=== PATIENT | male | born 1970 | race Caucasian/White ===

== ENCOUNTER → 2021-06-13 15:18 | Outpatient (CLI) | payer OTHER, SELFPAY ==
--- NOTE | 2021-06-15 11:29 | PC.NURSE ---
notified pt of positive COVID test results at this time
== END ==
PROVIDERS: Visit Provider Nurse Practitioner
DX: U07.1 COVID-19 (principal)
CPT/HCPCS: C9803; U0003; U0005

== ENCOUNTER 2021-06-13 15:26 | Emergency (ER) | payer OTHER, SELFPAY ==
[2021-06-13 15:46] VITALS: BP 119/81; PULSE 83; RESP 18; TEMP 37.3; O2SAT 97; BMI 40.4
[2021-06-13 16:00] LABS: UTC Strep Screen (Rapid) Negative (Negative)
--- NOTE | 2021-06-13 16:24 | HMH.EDUTC ---
[facility] [place] Clinical Impression: Viral syndrome Acute bronchitis Qualifiers: Bronchitis organism: unspecified organism Qualified Code(s): J20.9 - Acute bronchitis, unspecified Disposition: Home, Self-Care Condition on Discharge: Good Instructions: DI for Acute Bronchitis, Preventing the Spread of Coronavirus Discharge Instructions Additional Instructions: Drink plenty of fluids. Take tylenol or ibuprofen for pain or fever. Take the medications as directed. Follow up with your regular doctor. GO TO THE ER FOR ANY WORSENING SYMPTOMS Quarantine until you know the results of your covid-19 test. If it is positive, the health department should call you and give you further instructions about your length of Quarantine and other things. Notify your school or workplace of your results and follow their instructions regarding return to work/school. Prescriptions: Benzonatate [Benzonatate 100mg cap] 100 mg PO TIDP PRN #30 cap PRN Reason: Cough Transmission Status: Received by [id number] methylPREDNISolone [Medrol] 4 mg PO DIRECTED 6 Days #21 packet Transmission Status: Received by [id number] Azithromycin [Z-Familia 250mg Tab*] 250 mg PO UD DOSE PK #6 tab Transmission Status: Received by [id number] Referrals: Provider,Referral, [Primary Care Provider] - Forms: Work/School Release Time of Disposition: 16:47 Medical Decision Making - Medical Records Medical records reviewed: No: I reviewed the patient's medical records. - Phil Inquiry Pt receiving controlled substance: No Vital Signs: 06/13/21 15:46 06/13/21 16:51 Temperature 99.2 F 99.2 F Temperature Source Oral Pulse Rate 83 Pulse Rate [Left] 83 Respiratory Rate 18 18 Blood Pressure 119/81 Blood Pressure [Right Arm] 119/81 Blood Pressure Mean [Right Arm] 93 02 Sat by Pulse Oximetry 97 - Lab Data Lab results reviewed: Yes: I reviewed the patient's lab results. Lab Results 06/13/21 15:50: Strep Scn Rapid Clinic Negative Orders (Tests/Meds): ORDERS Category Date Time Status Strep Screen Confirmation Routine Micro 06/13/21 15:50 [place]ceived [facility] [place] - General Stated complaint: cough,Sore throat,Runny nose Time Seen by Provider: 06/13/21 16:24 Mode of Arrival: Ambulatory Source of Information: Patient Limitations: No Limitations HEENT Symptoms (Recalled from RN notes): Yes (sore throat and sinus pressure/congestion and drainage) Resp Symptoms (Recalled from RN notes): No Skin Symptoms (Recalled from RN notes): No MS Symptoms (Recalled from RN notes): No Functional Status (Recalled from RN notes): wnl - History of Present Illness Provider Complaint: He is here with complaints of sinus congestion and feeling bad for the past 2 days. He has sinus pressure and a scratchy sore throat also. - Related Data Home Medications Medication Instructions Recorded Confirmed meloxicam 15 mg tablet 15 mg PO DAILY 03/24/18 08/18/19 metaxalone 800 mg tablet 800 mg PO TID 03/24/18 08/18/19 Previous Rx's Medication Instructions Recorded oseltamivir 75 mg capsule 75 mg PO BID 5 Days #10 cap 08/15/19 azithromycin 250 mg tablet 250 mg PO QDAY 5 Days #6 tab 08/18/19 Azithromycin [Z-Familia 250mg Tab*] 250 mg PO UD DOSE PK #6 tab 06/13/21 Benzonatate [Benzonatate 100mg 100 mg PO TIDP PRN #30 cap 06/13/21 cap] methylPREDNISolone [Medrol] 4 mg PO DIRECTED 6 Days #21 06/13/21 packet Allergies Allergy/AdvReac Type Severity Reaction Status Date / Time Penicillins [PENICILLINS] Allergy Intermediate I-RASH Verified 08/18/19 13:04 - Worker's Comp Is this a Worker's Comp case?: No H History - Hepatitis A Screen Drug use history?: No High risk sexual behaviors?: No History of sexually transmitted infection?: No Currently employed?: No Childcare worker?: No Do you have indoor plumbing?: Yes Do you have electricity?: Yes Attestation statement:: This patient
[2021-06-13 16:51] VITALS: BP 119/81; PULSE 83; RESP 18; TEMP 37.3
== END 2021-06-13 16:55 | disposition home or self-care (01) ==
PROVIDERS: Emergency Provider Nurse Practitioner Family
DX: J20.9 Acute bronchitis, unspecified (principal); B34.9 Viral infection, unspecified; I10 Essential (primary) hypertension
CPT/HCPCS: 87880; 99202; G0463

== ENCOUNTER 2021-06-20 16:12 | Emergency (ER) | payer OTHER, SELFPAY ==
[2021-06-20] VITALS (7 sets, daily range): BP systolic 124–148; BP diastolic 65–94; PULSE 71–89; RESP 15–22; TEMP 36.6–36.9; O2SAT 95–99; BMI 40.3
--- NOTE | 2021-06-20 16:38 | XR_ITS ---
PROCEDURE INFORMATION: Exam: XR Chest Exam date and time: 06/20/2021 4:38 PM Age: 50 years old Clinical indication: Patient HX: Covid positive, shortness of breath, cough; Additional info: SOA, covid + TECHNIQUE: Imaging protocol: XR of the chest. Portable AP upright exam 4:50 p.m. Views: 1 view. COMPARISON: CT ABDOMEN PELVIS WO CON 06/05/2019 10:39 PM FINDINGS: Lungs: Hypoventilation/low lung volumes. Question ovoid 2 x 0.8 cm nodule or nodular focus of infection projected over the superolateral right lung, superimposed on the posterior right 5th rib, versus benign summation shadow. Minimal hazy lower airspace opacities which could be ground-glass disease of COVID-19 pneumonia, versus artifact from atelectasis or superimposed soft tissue shadows. No definite consolidation. Pleural spaces: Unremarkable. No significant pleural effusion. No pneumothorax. Heart/Mediastinum: Cardiac silhouette appears mildly enlarged, accentuated by portable AP technique and shallow inspiration. 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 Bones/joints: There are spinal degenerative changes, with multilevel disc narrrowing and spondylosis. IMPRESSION: 1. Hypoventilation/low lung volumes. 2. Minimal hazy airspace opacities may be due to COVID-19 pneumonia, versus atelectasis. Questionable 2.0 x 0.8 cm right upper lobe nodule, versus summation shadows or focus of pneumonia. 3. No definite consolidation. 4. Note that ground-glass disease of COVID-19 pneumonia can be radiographically occult on plain x-ray, and if further imaging is warranted by the clinical findings or course recommend CT which would be more accurate.
--- NOTE | 2021-06-20 16:40 | HMH.EDGENADL ---
ED Disposition Clinical Impression: COVID-19, Shortness of breath Community acquired pneumonia Qualifiers: Laterality: unspecified laterality Qualified Code(s): J18.9 - Pneumonia, unspecified organism Disposition: Home, Self-Care Condition on Discharge: Good Additional Instructions: Take antibiotics as directed, follow-up with your primary care physician within the next 1 to 3 days for repeat evaluation. Return to ED with new, worsening, concerning symptoms. There was an area of consolidation in your lungs which could be pneumonia or a lung nodule. It is very important follow-up with your primary care physician to have repeat imaging to ensure that this has resolved after taking antibiotics. Prescriptions: Cefdinir [Omnicef 300mg Capsule] 300 mg PO BID #14 cap Transmission Status: Received by [facility] Azithromycin [Z-Familia 250mg Tab] 250 mg PO DIRECTED #6 tab Transmission Status: Received by [facility] Referrals: Provider,Referral, [Referring] - - Critical Care Critical Care Time: No Attestation: On 06/20/21, the high probability of a clinically significant, sudden or life threatening deterioration of the following system(s) required my full and direct attention, intervention and personal management. The time I documented below is in addition to time spent performing reported procedures but includes the following listed in this critical care notation. Medical Decision Making - Medical Records Medical records reviewed: Yes: I reviewed the patient's medical records. - Phil Inquiry Pt receiving controlled substance: No Vital Signs: 06/20/21 16:14 06/20/21 16:31 06/20/21 17:00 Temperature 98.4 F Temperature Source Oral Pulse Rate 74 80 Pulse Rate [Radial] 71 Respiratory Rate 22 18 16 Blood Pressure 124/76 135/94 H Blood Pressure [Right Arm] 143/74 H Blood Pressure Mean 88 105 Blood Pressure Mean [Right Arm] 97 Blood Pressure Position Blood Pressure Position [Right Arm] Sitting 02 Sat by Pulse Oximetry 99 99 95 Oxygen Delivery Method Room Air 06/20/21 17:30 06/20/21 18:00 06/20/21 18:30 Temperature Temperature Source Pulse Rate 89 85 80 Pulse Rate [Radial] Respiratory Rate 15 16 17 Blood Pressure 143/69 H 126/79 125/85 Blood Pressure [Right Arm] Blood Pressure Mean 111 95 96 Blood Pressure Mean [Right Arm] Blood Pressure Position Blood Pressure Position [Right Arm] 02 Sat by Pulse Oximetry 96 Oxygen Delivery Method 06/20/21 18:55 Temperature 98 F Temperature Source Oral Pulse Rate 78 Pulse Rate [Radial] Respiratory Rate 18 Blood Pressure 148/65 H Blood Pressure [Right Arm] Blood Pressure Mean Blood Pressure Mean [Right Arm] Blood Pressure Position Sitting Blood Pressure Position [Right Arm] 02 Sat by Pulse Oximetry Oxygen Delivery Method Room Air - Lab Data Lab Results 06/20/21 17:00: WBC 6.2, RBC 4.89, Hgb 16.0, Hct 46.3, MCV 94.5 H, MCH 32.6 H, MCHC 34.5, RDW 13.0, Plt Count 232, MPV 8.6, Neut % (Auto) 63.6, Lymph % (Auto) 26.9, Sherman % (Auto) 6.6, Eos % (Auto) 2.1, Baso % (Auto) 0.7, Neut # (Auto) 4.0, Lymph # (Auto) 1.7, Sherman # (Auto) 0.4, Eos # (Auto) 0.1, Baso # (Auto) 0.0 06/20/21 17:00: Sodium 140, Potassium 4.2, Chloride 104, Carbon Dioxide 31 H, Anion Gap 9.2, BUN 15, Creatinine 1.00, Estimated Creat Clear 191, Estimated GFR 79, Est GFR ( Amer) 95, Glucose 140 H, Calcium 8.9, Total Bilirubin 0.5, AST 32, ALT 27, Alkaline Phosphatase 83, Troponin I < 0.01, Total Protein 6.8, Albumin 4.0, Globulin 2.8, Albumin/Globulin Ratio 1.4 06/20/21 17:00: NT-Pro-B Natriuret Pep 20.1 Result diagrams: 06/20/21 17:00 06/20/21 17:00 Orders (Tests/Meds): ED MEDICATIONS Discontinued Medications Generic Name Dose Route Start Last Admin Trade Name Freq PRN Reason Stop Dose Admin Benzonatate 100 mg 06/20/21 16:45 06/20/21 18:05 Benzonatate 100mg Capsule PO 07/20/21 16:44 100
[2021-06-20 17:24] LABS: Basophils % 0.7 % (0.1-2.0); Eosinophils # 0.1 K/mm3 (0.0-0.4); Eosinophils % 2.1 % (0.1-12.0); Hematocrit 46.3 % (42.0-52.0); Lymphocytes # 1.7 K/mm3 (0.7-4.5); Lymphocytes % 26.9 % (10-50); Mean Corpuscular HGB Conc 34.5 g/dL (31.8-35.4); Mean Corpuscular Hemoglobin 32.6 pg (27.0-31.2); Mean Corpuscular Volume 94.5 fl (80-94); Mean Platelet Volume 8.6 fl (7.4-10.4); Monocytes # 0.4 K/mm3 (0.1-1.0); Monocytes % 6.6 % (1.7-9.3); Neutrophils % 63.6 % (37.0-80.0); Platelet Count 232 K/mm3 (142-424); Red Blood Count 4.89 M/mm3 (4.60-6.20); White Blood Count 6.2 K/mm3 (4.8-10.8)
[2021-06-20 17:28] LABS: Chloride 104 mmol/L (98-107); Potassium 4.2 mmoL/L (3.5-5.1); Sodium 140 mmol/L (136-145)
[2021-06-20 17:31] LABS: Alanine Aminotransferase 27 U/L (12-78); Albumin/Globulin Ratio 1.4 (1.1-1.8); Alkaline Phosphatase 83 U/L (38-126); Anion Gap 9.2 mEq/L (5-15); Aspartate Amino Transferase 32 U/L (17-59); Bilirubin,Total 0.5 mg/dl (0.2-1.3); Blood Urea Nitrogen 15 mg/dl (9-20); Carbon Dioxide 31 mmol/L (22.0-30.0); Creatinine Clearance Estimated 191 mL/min (50-200); Estimated Glomerular Filt Rate 79 ml/min (>60); GFR (African American) 95 ML/MIN (>60); Globulin 2.8 g/dL (1.3-3.2); Total Protein,Serum 6.8 g/dl (6.3-8.2)
[2021-06-20 17:32] LABS: Calcium 8.9 mg/dl (8.4-10.2); Glucose 140 mg/dl (74-100)
[2021-06-20 17:40] LABS: NT Pro Brain Natriuretic Pep. 20.1 pg/mL (0-125)
[2021-06-20 18:02] LABS: Troponin I < 0.01 ng/ml (0.00-0.034)
--- NOTE | 2021-06-20 18:20 | ECG_ITS ---
APPROVED REPORT Exam: Resting ECG HR:69 bpm ECG Measurements Heart Rate 69 AXES GA 158 P 52 QRSd 86 QRS 72 QT 384 T 55 QTc 411 Conclusion Normal sinus rhythm Normal ECG Electronically signed by : Nima Deleon MD 06/21/2021 21:51:01
== END 2021-06-20 18:57 | disposition home or self-care (01) ==
PROVIDERS: Emergency Provider Emergency Medicine; PCP Internal Medicine
DX: J18.9 Pneumonia, unspecified organism (principal); U07.1 COVID-19; I10 Essential (primary) hypertension
CPT/HCPCS: 71045; 80053; 83880; 84484; 85025; 93005; 99282

== ENCOUNTER 2022-11-21 15:51 | Emergency (ER) | payer OTHER, SELFPAY ==
[2022-11-21 16:05] VITALS: BP 136/81; PULSE 81; RESP 19; TEMP 36.8; O2SAT 98; BMI 39.6
--- NOTE | 2022-11-21 16:30 | EXP.UTC ---
Discharge Plan Disposition Patient Disposition: Home, Self-Care Condition: Good Prescriptions Prescriptions: New azithromycin [Zithromax Z-Familia] 250 mg tablet See Rx Instructions .ROUTE .COMPLEX 5 Days Qty: 6 0RF Rx Instructions: For 250 mg dose pack: take 500 mg today (day 1), then 250 mg for 4 days (days 2-5) benzonatate 100 mg capsule 100 mg PO TID PRN (Reason: cough) Qty: 30 0RF methylprednisolone [Medrol (Familia)] 4 mg tablets,dose pack See Rx Instructions .Route .COMPLEX 6 Days Qty: 21 0RF Rx Instructions: taper pack; No Action azithromycin 250 mg tablet 250 mg PO QDAY 5 Days Qty: 6 0RF Rx Instructions: ii tabs day one, i tab days 2-5 meloxicam 15 mg tablet 15 mg PO DAILY metaxalone [Skelaxin] 800 mg tablet 800 mg PO TID oseltamivir [Tamiflu] 75 mg capsule 75 mg PO BID 5 Days Qty: 10 0RF azithromycin 250 MG tablet 250 mg PO UD DOSE PK Qty: 6 0RF Rx Instructions: Take two (2) tablets today, then one (1) tablet days #2 thru #5 benzonatate 100 MG capsule 100 mg PO TIDP PRN (Reason: Cough) Qty: 30 0RF methylprednisolone 4 MG tablets,dose pack 4 mg PO DIRECTED 6 Days Qty: 21 0RF azithromycin 250 MG tablet 250 mg PO DIRECTED Qty: 6 0RF Rx Instructions: Take two (2) tablets on day #1, then one (1) tablet day #2 thru #5 cefdinir 300 MG capsule 300 mg PO BID Qty: 14 0RF Referrals Follow up/Referrals: Hayley Bustillos MD [Primary Care Provider] - See instructions Activity Restrictions/Add. Instructions Additional Instructions/Restrictions: * Start antibiotic today. Be sure to complete entire prescription even if feeling better Monitor temp. Tylenol every 4 hours as needed and / or ibuprofen every 6 hours as needed ( As long as your primary care physician has told you that it ok to take both. For fever/aches/pains ER if no less than 101 despite Tylenol or Motrin Humidifier/vaporizer or hot steamy shower Mucinex during the day for your cough and cough suppressant only at night. Be sure to drink lots of water. *Tessalon Perles will not cause drowsiness but use at bedtime to help stop cough so that you may get some rest. *Start steroid today. Helps with inflammation therefore, cough and wheezing. Follow directions on the package. Reviewed side effects. Patient reports taking them before. Follow up IMMEDIATELY for new or worsening of symptoms OR no noticeable improvement over the next 48-72 hours. 911 immediately for any life threatening symptoms such as chest pain or difficulty breathing* Clinical Impressions Clinical Impression: Acute bronchitis, Sinusitis Instructions Patient Instructions: DI for Sinusitis, Sinusitis, Acute Bronchitis Discharge ED Provider: Juani Krueger [facility] [place] HPI General Stated complaint: sore throat, sinus congestion Mode of Arrival: Ambulatory Source of Information: Patient Limitations: No Limitations Time Seen by Provider: 11/21/22 16:30 Description of Symptoms (Recalled from Triage Doc. by RN): PATIENT C/O RUNNY NOSE, SORE THROAT, AND PRODUCTIVE COUGH SINCE SUNDAY HEENT Symptoms (Recalled from RN notes): Yes Resp Symptoms (Recalled from RN notes): Yes Skin Symptoms (Recalled from RN notes): No MS Symptoms (Recalled from RN notes): No Functional Status (Recalled from RN notes): WNL History of Present Illness Provider Complaint: Patient states that he has been having sinus congestion and pressure for close to a week worse since Sunday and having cough that is productive at times and sometimes feels a little SOA after coughing episode States that he is having pressure in his sinuses and ears and drainage in his throat Related Data Home Medications Medication Instructions Recorded Confirmed meloxicam 15 mg tablet 15 mg PO DAILY Arthritis 03/24/18 08/18/19 metaxalone 800 mg tablet (Skelaxin) 800 mg PO TID BACK PAIN 03/24/18
[2022-11-21 16:54] VITALS: BP 136/81; PULSE 81; RESP 19; TEMP 36.8; O2SAT 98
== END 2022-11-21 16:56 | disposition home or self-care (01) ==
PROVIDERS: Emergency Provider Nurse Practitioner; PCP Internal Medicine
DX: J20.9 Acute bronchitis, unspecified (principal); J01.90 Acute sinusitis, unspecified
CPT/HCPCS: 99212; 99214; G0463

== ENCOUNTER 2024-04-13 10:32 | Emergency (ER) | payer OTHER, SELFPAY ==
[2024-04-13] VITALS (7 sets, daily range): BP systolic 115–126; BP diastolic 59–82; PULSE 68–83; RESP 16–20; TEMP 36.7–37.1; O2SAT 95–100; BMI 39.2
--- NOTE | 2024-04-13 10:39 | HMH.EDGENADL ---
Discharge Plan Disposition Patient Disposition: Home, Self-Care Condition: Fair Prescriptions Prescriptions: No Action azithromycin 250 mg tablet 250 mg PO QDAY 5 Days Qty: 6 0RF Rx Instructions: ii tabs day one, i tab days 2-5 meloxicam 15 mg tablet 15 mg PO DAILY metaxalone [Skelaxin] 800 mg tablet 800 mg PO TID oseltamivir [Tamiflu] 75 mg capsule 75 mg PO BID 5 Days Qty: 10 0RF azithromycin 250 MG tablet 250 mg PO UD DOSE PK Qty: 6 0RF Rx Instructions: Take two (2) tablets today, then one (1) tablet days #2 thru #5 benzonatate 100 MG capsule 100 mg PO TIDP PRN (Reason: Cough) Qty: 30 0RF methylprednisolone 4 MG tablets,dose pack 4 mg PO DIRECTED 6 Days Qty: 21 0RF azithromycin 250 MG tablet 250 mg PO DIRECTED Qty: 6 0RF Rx Instructions: Take two (2) tablets on day #1, then one (1) tablet day #2 thru #5 cefdinir 300 MG capsule 300 mg PO BID Qty: 14 0RF azithromycin [Zithromax Z-Familia] 250 mg tablet See Rx Instructions .ROUTE .COMPLEX 5 Days Qty: 6 0RF Rx Instructions: For 250 mg dose pack: take 500 mg today (day 1), then 250 mg for 4 days (days 2-5) benzonatate 100 mg capsule 100 mg PO TID PRN (Reason: cough) Qty: 30 0RF methylprednisolone [Medrol (Familia)] 4 mg tablets,dose pack See Rx Instructions .Route .COMPLEX 6 Days Qty: 21 0RF Rx Instructions: taper pack; Referrals Follow up/Referrals: Hayley Bustillos MD [Primary Care Provider] - See instructions Activity Restrictions/Add. Instructions Additional Instructions/Restrictions: Wear knee immobilizer at all times and do not bear weight on your left lower extremity until you follow-up with your orthopedic surgeon. Schedule an appointment as soon as possible. Return to the emergency department for new or worsening symptoms. Apply Andre bandage for compression of the knee to help with swelling and ice for 40 minutes on 20 minutes off in addition to [id number] naproxen and Tylenol. Clinical Impressions Clinical Impression: Hemarthrosis Stand Alone Forms Stand Alone Forms: Work/School Release Print Language Print Language: Yoruba Discharge ED Provider: Mirta Spann General Adult HPI General Chief complaint: Extremity Injury, Lower Stated complaint: ao 04/13, left knee pain Time Seen by Provider: 04/13/24 10:38 History of Present Illness HPI narrative: Patient is a 53-year-old with past medical history significant for left knee replacement and hypertension presents to the emergency department with left knee injury. Patient was walking down 4 steps slipped and hyperextended his left knee. Patient did not hit his head lose consciousness and denies blood thinner use. Patient has been unable to move from the left knee and down patient notes numbness of the inside of the left lower leg. Pain is 8 out of 10 unable to ambulate on the left leg. Related Data Home Medications ?Medication ?Instructions ?Recorded ?Confirmed meloxicam 15 mg tablet 15 mg PO DAILY Arthritis 03/24/18 08/18/19 metaxalone 800 mg tablet (Skelaxin) 800 mg PO TID BACK PAIN 03/24/18 08/18/19 Previous Rx's ?Medication ?Instructions ?Recorded oseltamivir 75 mg capsule (Tamiflu) 75 mg PO BID 5 days #10 caps 08/15/19 azithromycin 250 mg tablet 250 mg PO QDAY sinusitis 5 days #6 08/18/19 tabs azithromycin 250 mg tablet 250 mg PO UD DOSE PK #6 tabs 06/13/21 benzonatate 100 mg capsule 100 mg PO TIDP PRN Cough #30 caps 06/13/21 methylprednisolone 4 mg tablets in 4 mg PO DIRECTED 6 days #21 06/13/21 a dose pack packets azithromycin 250 mg tablet 250 mg PO DIRECTED #6 tabs 06/20/21 cefdinir 300 mg capsule 300 mg PO BID #14 caps 06/20/21 azithromycin 250 mg tablet See Rx Instructions PO .COMPLEX 5 11/21/22 (Zithromax Z-Familia) days #6 tabs benzonatate 100 mg capsule 100 mg PO TID PRN cough #30 caps 11/21/22 methylprednisolone 4 mg tablets in See Rx Instructions .Route 11/21/22 a dose pack (Medrol (Familia)) .COMPLEX 6 days #21 tabs Allergies Allergy/AdvReac Type Severity Reaction Status Date / Time Penicillins [PENICILLINS] Allergy Intermediate I-RASH Verified 08/18/19 13:04 [facility] Disclaimer: The information contained in this section may have been updated after the patient was seen, as this information can be updated by other users. Social History Smoking Status: Never smoker alcohol intake: never substance use type: denies use current occupational status: employed Travel in the last 8 weeks: None household members: spouse and family housing: house ROS Obtained: Yes All systems reviewed & no additional complaints except as documented Physical Exam General General appearance: alert and in no apparent distress Head Head exam: atraumatic and normocephalic Respiratory Respiratory exam: Absent respiratory distress or accessory muscle use Cardiovascular Cardiovascular exam: Present regular rate, normal rhythm and other (Intact bilateral DP and PT pulses) Abdominal Exam Abdominal exam: Present soft; Absent tenderness Extremities Exam Extremities exam: Present tenderness (left tib fib, knee, ankle, femur) and other (Left lower extremity tenderness to left femur left hip left proximal tib-fib right medial malleolus, effusion of the left knee unable to flex or extend at the left knee unable to melissa or invert, dorsi or plantarflex left ankle, able to wiggle toes. Decreased sensation L4 dermatome left lower extr.) Back Exam Back exam: Present normal inspection and full ROM; Absent tenderness Neurological Exam Neurological exam: Present alert and oriented X3 Medical Decision Making Medical Records Screening: Per USPSTF and CDC recommendations, given the prevalence of disease in our region, it is our hospital?s policy to screen for HIV and viral Hepatitis for all patients aged 18 and over and those with ongoing risk factors. Phil Inquiry Pt receiving controlled substance: No Vital Signs: 04/13/24 10:33 04/13/24 10:39 04/13/24 11:00 Temperature 98.7 F Temperature Source Oral Pulse Rate 83 77 Pulse Rate [Right] 82 Respiratory Rate 20 Blood Pressure 120/66 124/82 Blood Pressure [Right Arm] 120/66 Blood Pressure Mean Blood Pressure Mean [Right Arm] 84 Blood Pressure Source Blood Pressure Position 02 Sat by Pulse Oximetry 100 99 97 Oxygen Delivery Method Room Air Room Air 04/13/24 12:00 04/13/24 12:30 04/13/24 13:01 Temperature Temperature Source Pulse Rate 83 68 Pulse Rate [Right] Respiratory Rate Blood Pressure 115/77 124/76 126/59 L Blood Pressure [Right Arm] Blood Pressure Mean 85 83 80 Blood Pressure Mean [Right Arm] Blood Pressure Source Blood Pressure Position 02 Sat by Pulse Oximetry 96 95 Oxygen Delivery Method Room Air Room Air 04/13/24 13:50 Temperature 98.0 F Temperature Source Pulse Rate 68 Pulse Rate [Right] Respiratory Rate 16 Blood Pressure 126/59 L Blood Pressure [Right Arm] Blood Pressure Mean Blood Pressure Mean [Right Arm] Blood Pressure Source Automatic Cuff Blood Pressure Position Sitting 02 Sat by Pulse Oximetry Oxygen Delivery Method Room Air Lab Data Lab Results 04/13/24 10:55: WBC 8.3, RBC 4.65, Hgb 15.3, Hct 46.9, MCV 100.7 H, MCH 32.9 H, MCHC 32.7, RDW 13.5, Plt Count 242, MPV 7.9, Neut % (Auto) 67.9, Lymph % (Auto) 22.9, Benzie % (Auto) 6.7, Eos % (Auto) 1.9, Baso % (Auto) 0.5, Neut # (Auto) 5.7, Lymph # (Auto) 1.9, Benzie # (Auto) 0.6, Eos # (Auto) 0.2, Baso # (Auto) 0.1, Sodium 136, Potassium 3.7, Chloride 108 H, Carbon Dioxide 23, Anion Gap 8.7, BUN 19, Creatinine 1.20, Estimated Creat Clear 154, Estimated GFR 63, Est GFR ( Amer) 76, Glucose 151 H, Calcium 8.9, Total Bilirubin 0.7, AST 28, ALT 30, Alkaline Phosphatase 77, Total Protein 6.6, Albumin 4.1, Globulin 2.5, Albumin/Globulin Ratio 1.6, HIV 1&2 Antibody Rapid Nonreactive 04/13/24 10:55 04/13/24 10:55 Orders (Tests/Meds): ED MEDICATIONS Discontinued Medications Generic Name Dose Route Start Last Admin Trade Name Freq PRN Reason Stop Dose Admin Hydromorphone HCl 1 mg 04/13/24 11:32 04/13/24 11:54 Hydromorphone 2mg/Ml Syringe IV 04/13/24 11:33 1 mg ONCE ONE Administration Iopamidol 85 ml 04/13/24 12:58 04/13/24 13:00 Iopamidol-370 (76%);100ml Bottle IV 04/13/24 12:59 85 ml ONCE ONE Administration Morphine Sulfate 4 mg 04/13/24 10:47 04/13/24 10:59 Morphine 4mg/Ml Syringe IV 04/13/24 10:48 4 mg ONCE ONE Administration Sodium Chloride 50 ml 04/13/24 12:58 04/13/24 12:59 0.9 % Sodium Chloride 50 Ml Vial IV 04/13/24 12:59 50 ml ONCE ONE Administration Sodium Chloride 10 ml 04/13/24 12:58 04/13/24 13:00 Sodium Chloride 0.9% 10ml Syr (Rad Only) IV 05/13/24 12:57 10 ml NEEDED PRN Administration Maintain IV Site ORDERS Category Date Time Status CT Tib/Fib LT wo con Stat Cat Scan 04/13/24 12:[address] angio LE LT Stat Cat Scan 04/13/24 12:[address] knee LT wo con Stat Cat Scan 04/13/24 12:09 Completed Ankle XR - Left minimum 3 Views [XR ankle LT min 3V] Exams 04/13/24 10:47 Completed Stat Femur XR left 2 views [XR femur LT 2V] Stat Exams 04/13/24 10:47 Completed Fibula/tibia XR left 2 views [XR tibia fibula LT 2V] Exams 04/13/24 10:47 Completed Stat Foot XR left minimum 3 views [XR foot LT min 3V] Stat Exams 04/13/24 10:47 Completed Hip XR left minimum 2 views [XR hip LT 2-3V w/pelvis] Exams 04/13/24 10:47 Completed Stat Knee XR left 3 views [XR knee LT 3V] Stat Exams 04/13/24 10:47 Completed Pelvis XR 1-2 views [XR pelvis 1-2V] Stat Exams 04/13/24 10:47 Completed CBC [Complete Blood Count Auto Diff] Stat Lab 04/13/24 10:55 Completed CMP [Comprehensive Metabolic Panel] Stat Lab 04/13/24 10:55 Completed HIV (1&2) Antibody Rapid Stat Lab 04/13/24 10:55 Completed Hep C Ab with Reflex to RNA Stat Lab 04/13/24 10:55 Received Medical Decision Narrative: In summary, this 53-year-old male presents to the emergency department today with left knee pain. On initial evaluation patient is hemodynamically stable saturating appropriately on room air afebrile no acute distress. Differential diagnosis includes but is not limited to acute fracture or dislocation, neurovascular injury. Based on these concerns, I ordered CBC CMP x-rays of pelvis and left hip femur knee tib-fib ankle and foot. Patient received 4 mg of morphine and 1 mg of Dilaudid for treatment. Labs personally reviewed demonstrate normal creatinine XR personally interpreted demonstrates no acute fracture on x-ray. Due to concern of significant effusion of the knee and risk of dislocation relocation CTA left lower extremity obtained and CT knee and tib-fib ordered for evaluation of occult fracture. CT imaging personally interpreted demonstrate no popliteal dissection no fracture On reassessment patient has improvement of pain. Symptoms are most concerning for hemarthrosis possible tendon or ligament injury. Patient was given outpatient follow-up with his personal orthopedic surgeon placed in a knee immobilizer strict nonweightbearing of left lower extremity using crutches until follow-up with orthopedic surgery. Of note, social determinants of health include inability to obtain specialist appointment in timely manner Critical Care Critical Care Time Critical Care Time: No
--- NOTE | 2024-04-13 10:47 | XR_ITS ---
PROCEDURE INFORMATION: Exam: XR Left Foot Exam date and time: 04/13/2024 11:31 AM Age: 53 years old Clinical indication: Injury or trauma; Fall; Blunt trauma; Foot; Left; Additional info: Fall, left hip knee and ankle pain TECHNIQUE: Imaging protocol: Radiologic exam of the left foot. Views: 3 or more views. COMPARISON: CR XR ANKLE LT MIN 3V 04/13/2024 11:29 AM FINDINGS: Bones/joints: No acute fracture or dislocation. Spurring along the posterior and plantar calcaneus. Soft tissues: Normal. IMPRESSION: No acute findings.
--- NOTE | 2024-04-13 10:47 | XR_ITS ---
PROCEDURE INFORMATION: Exam: XR Left Ankle Exam date and time: 04/13/2024 11:29 AM Age: 53 years old Clinical indication: Injury or trauma; Fall; Blunt trauma; Ankle; Left; Additional info: Fall, left hip knee and ankle pain TECHNIQUE: Imaging protocol: Radiologic exam of the left ankle. Views: 3 or more views. COMPARISON: CR Lower leg L 04/13/2024 11:28 AM FINDINGS: Bones/joints: No acute fracture or dislocation. Spurring along the posterior and plantar calcaneus. Soft tissues: Normal. IMPRESSION: No acute findings.
--- NOTE | 2024-04-13 10:47 | XR_ITS ---
PROCEDURE INFORMATION: Exam: XR Left Knee Exam date and time: 04/13/2024 11:26 AM Age: 53 years old Clinical indication: Injury or trauma; Fall; Blunt trauma; Left; Prior surgery; Surgery date: 6+ months; Surgery type: Knee replacement; Additional info: Fall, left hip knee and ankle pain TECHNIQUE: Imaging protocol: Radiologic exam of the left knee. Views: 3 views. COMPARISON: CR Femur L 04/13/2024 11:25 AM FINDINGS: Bones/joints: Total knee prosthesis. No acute fracture or evidence of hardware malfunction. Large suprapatellar joint effusion. Prepatellar and suprapatellar soft tissue edema. Soft tissues: See Bones/joints finding. IMPRESSION: 1. Large suprapatellar joint effusion. 2. Prepatellar and suprapatellar soft tissue edema.
--- NOTE | 2024-04-13 10:47 | XR_ITS ---
PROCEDURE INFORMATION: Exam: XR Pelvis Exam date and time: 04/13/2024 11:23 AM Age: 53 years old Clinical indication: Injury or trauma; Fall; Blunt trauma (contusions or hematomas); Left; Hip; Additional info: Fall, left hip knee and ankle pain TECHNIQUE: Imaging protocol: Radiologic exam of the pelvis. Views: 1 or 2 view. COMPARISON: CT ABDOMEN PELVIS WO CON 06/05/2019 10:39 PM FINDINGS: Bones/joints: Degenerative changes lumbar spine. No acute fracture or dislocation. Soft tissues: Unremarkable. IMPRESSION: No acute findings.
--- NOTE | 2024-04-13 10:47 | XR_ITS ---
PROCEDURE INFORMATION: Exam: XR Left Femur Exam date and time: 04/13/2024 11:25 AM Age: 53 years old Clinical indication: Injury or trauma; Fall; Blunt trauma; Thigh or upper leg; Left; Additional info: Fall, left hip knee and ankle pain TECHNIQUE: Imaging protocol: Radiologic exam of the left femur. Views: 2 views. COMPARISON: CR XR HIP LT 2-3V W/PELVIS 04/13/2024 11:24 AM FINDINGS: Bones/joints: Total knee prosthesis. No acute fracture or dislocation. Large suprapatellar joint effusion. Prepatellar and suprapatellar soft tissue edema. Soft tissues: See Bones/joints finding. IMPRESSION: 1. Large suprapatellar joint effusion. 2. Prepatellar and suprapatellar soft tissue edema.
--- NOTE | 2024-04-13 10:47 | XR_ITS ---
PROCEDURE INFORMATION: Exam: XR Left Tibia and Fibula Exam date and time: 04/13/2024 11:28 AM Age: 53 years old Clinical indication: Injury or trauma; Fall; Blunt trauma; Lower leg; Left; Additional info: Fall, left hip knee and ankle pain TECHNIQUE: Imaging protocol: Radiologic exam of the left tibia and fibula. Views: 2 views. COMPARISON: CR Knee L 04/13/2024 11:26 AM FINDINGS: Bones/joints: Total knee prosthesis. No acute fracture or dislocation. Soft tissues: Normal. IMPRESSION: No acute findings.
--- NOTE | 2024-04-13 10:47 | XR_ITS ---
PROCEDURE INFORMATION: Exam: XR Left Hip Exam date and time: 04/13/2024 11:24 AM Age: 53 years old Clinical indication: Injury or trauma; Fall; Blunt trauma (contusions or hematomas); Left; Hip; Additional info: Fall, left hip knee and ankle pain TECHNIQUE: Imaging protocol: Radiologic exam of the left hip. Views: 2 or 3 views hip with pelvis when performed. COMPARISON: CR Pelvis 04/13/2024 11:23 AM FINDINGS: Bones/joints: Unremarkable. No acute fracture. Soft tissues: Unremarkable. IMPRESSION: No acute findings.
[2024-04-13] MEDS: MORPHINE 4MG/ML SYRINGE 4 MG IV (10:59)
[2024-04-13 11:15] LABS: Basophils # 0.1 K/mm3 (0-0.2); Basophils % 0.5 % (0.1-2.0); Eosinophils # 0.2 K/mm3 (0.0-0.4); Eosinophils % 1.9 % (0.1-12.0); Hematocrit 46.9 % (42.0-52.0); Hemoglobin 15.3 g/dL (14.1-18.0); Lymphocytes # 1.9 K/mm3 (0.7-4.5); Lymphocytes % 22.9 % (10-50); Mean Corpuscular HGB Conc 32.7 g/dL (31.8-35.4); Mean Corpuscular Hemoglobin 32.9 pg (27.0-31.2); Mean Corpuscular Volume 100.7 fl (80-94); Mean Platelet Volume 7.9 fl (7.4-10.4); Monocytes # 0.6 K/mm3 (0.1-1.0); Monocytes % 6.7 % (1.7-9.3); Neutrophils # 5.7 K/mm3 (1.8-7.8); Neutrophils % 67.9 % (37.0-80.0); Platelet Count 242 K/mm3 (142-424); Red Blood Count 4.65 M/mm3 (4.60-6.20); Red Cell Distribution Width 13.5 % (11.5-17.5); White Blood Count 8.3 K/mm3 (4.8-10.8)
[2024-04-13 11:21] LABS: Albumin Level 4.1 g/dl (3.5-5.0); Chloride 108 mmol/L (98-107); Potassium 3.7 mmoL/L (3.5-5.1); Sodium 136 mmol/L (136-145)
[2024-04-13 11:24] LABS: Alanine Aminotransferase 30 U/L (12-78); Albumin/Globulin Ratio 1.6 (1.1-1.8); Alkaline Phosphatase 77 U/L (38-126); Anion Gap 8.7 mEq/L (5-15); Aspartate Amino Transferase 28 U/L (17-59); Bilirubin,Total 0.7 mg/dl (0.2-1.3); Blood Urea Nitrogen 19 mg/dl (9-20); Calcium 8.9 mg/dl (8.4-10.2); Carbon Dioxide 23 mmol/L (22.0-30.0); Creatinine Clearance Estimated 154 mL/min (50-200); Estimated Glomerular Filt Rate 63 ml/min (>60); GFR (African American) 76 ML/MIN (>60); Globulin 2.5 g/dL (1.3-3.2); Glucose 151 mg/dl (74-100); Total Protein,Serum 6.6 g/dl (6.3-8.2)
[2024-04-13] MEDS: HYDROMORPHONE 2MG/ML SYRINGE 1 MG IV (11:54)
--- NOTE | 2024-04-13 12:02 | CT_ITS ---
PROCEDURE INFORMATION: Exam: CTA Left Lower Extremity With Contrast Exam date and time: 04/13/2024 12:51 PM Age: 53 years old Clinical indication: Pain; Knee; Left; Additional info: Knee dislocation, concern for popliteal artery inj TECHNIQUE: Imaging protocol: Computed tomographic angiography of the left lower extremity with contrast. 3D rendering (Not supervised by radiologist): MIP and/or 3D reconstructed images were created by the technologist. Radiation optimization: All CT scans at this facility use at least one of these dose optimization techniques: automated exposure control; mA and/or kV adjustment per patient size (includes targeted exams where dose is matched to clinical indication); or iterative reconstruction. Contrast material: ISOVUE 370; Contrast volume: 87 ml; Contrast route: INTRAVENOUS (IV); COMPARISON: CT LOWER LEG LT WO CON 04/13/2024 12:46 PM FINDINGS: Left femoral/popliteal arteries: No occlusion or significant stenosis. Left infrapopliteal arteries: No occlusion or significant stenosis. Bones/joints: Total knee prosthesis with extensive streak artifact limiting evaluation. Large and complex suprapatellar joint effusion, likely hemarthrosis given new history of trauma. No acute fracture identified. Soft tissues: Fat stranding within the anterior distal thigh. Other findings: Distal femoral artery intact. Faint visualization of multiple sections of the popliteal artery due to artifact. No evidence of popliteal artery injury. Visualized portion of [id number]-[id number] runoff normal. IMPRESSION: 1. Total knee prosthesis with extensive streak artifact limiting evaluation. 2. Large and complex suprapatellar joint effusion, likely hemarthrosis given new history of trauma. 3. Faint visualization of multiple sections of the popliteal artery due to artifact. No evidence of popliteal artery injury.
--- NOTE | 2024-04-13 12:09 | CT_ITS ---
PROCEDURE INFORMATION: Exam: CT Left Lower Extremity, Leg Exam date and time: 04/13/2024 12:46 PM Age: 53 years old Clinical indication: Pain; Lower leg; Left; Additional info: Occult FX TECHNIQUE: Imaging protocol: CT of the left lower extremity without contrast was performed. Exam focused on the lower leg. Radiation optimization: All CT scans at this facility use at least one of these dose optimization techniques: automated exposure control; mA and/or kV adjustment per patient size (includes targeted exams where dose is matched to clinical indication); or iterative reconstruction. COMPARISON: CR Lower leg L 04/13/2024 11:28 AM FINDINGS: Bones/joints: No acute fracture or dislocation. Soft tissues: See CT knee same day for soft tissue abnormalities. No significant abnormality within the lower leg. IMPRESSION: See CT knee same day for soft tissue abnormalities.
--- NOTE | 2024-04-13 12:09 | CT_ITS ---
PROCEDURE INFORMATION: Exam: CT Left Lower Extremity, Knee Exam date and time: 04/13/2024 12:44 PM Age: 53 years old Clinical indication: Screening exam; Occult FX; Prior surgery; Surgery date: 6+ months; Surgery type: Knee replacement TECHNIQUE: Imaging protocol: CT of the left lower extremity without contrast was performed. Exam focused on the knee. Radiation optimization: All CT scans at this facility use at least one of these dose optimization techniques: automated exposure control; mA and/or kV adjustment per patient size (includes targeted exams where dose is matched to clinical indication); or iterative reconstruction. COMPARISON: CR Knee L 04/13/2024 11:26 AM FINDINGS: Bones/joints: Total knee prosthesis with extensive streak artifact limiting evaluation. Large and complex suprapatellar joint effusion, hemarthrosis or septic joint cannot be excluded. No acute fracture identified. Soft tissues: Multiple well corticated calcifications within the anterior soft tissues. Fat stranding within the anterior distal thigh. IMPRESSION: 1. Total knee prosthesis with extensive streak artifact limiting evaluation. 2. Large and complex suprapatellar joint effusion, hemarthrosis or septic joint cannot be excluded. 3. Fat stranding within the anterior distal thigh.
[2024-04-13 12:18] LABS: HIV (1&2) Antibody Rapid NONREACTIVE (NONREACTIVE)
[2024-04-13] MEDS: 0.9 % SODIUM CHLORIDE 50 ML VIAL IV (12:59)
[2024-04-13] MEDS: IOPAMIDOL-370 (76%);100ML BOTTLE 85 ML IV (13:00)
[2024-04-13] MEDS: SODIUM CHLORIDE 0.9% 10ML SYR (RAD ONLY) 10 ML IV (13:00)
[2024-04-14 11:10] LABS: HCV Ab Non Reactive (Non Reactive)
== END 2024-04-13 13:54 | disposition home or self-care (01) ==
PROVIDERS: Emergency Provider Student in an Organized Health Care Education/Training Program; PCP Internal Medicine
DX: M25.062 Hemarthrosis, left knee (principal); M25.562 Pain in left knee; R20.0 Anesthesia of skin; W10.8XXA Fall (on) (from) other stairs and steps, initial encounter
CPT/HCPCS: 72170; 73502; 73552; 73562; 73590; 73610; 73630; 73700; 73706; 80053; 85025; 86803; 87389; 96374; 96375; 99285; J1170; J2270; Q9967